=== PATIENT | male | born 1950 | race Caucasian/White ===

== ENCOUNTER 2016-05-04 08:30 | Emergency (ER) | payer OTHER, MEDICARE ==
[~2016-05-04] VITALS: Ht 177.8 cm; Wt 105.0 kg
[~2016-05-04 08:30] MED LIST: ASPI81 PO; ATOR80TA41 PO; CARV3.125 PO; LISI10 PO; PRAS10 PO
[2016-05-04 08:40] VITALS: BP 179/98; PULSE 73; RESP 20; TEMP 98.3; O2SAT 96
[2016-05-04] MEDS ORDERED: ATOR1TAB18 PO (08:45)
[2016-05-04] MEDS ORDERED: LISI10TA3 PO (08:45)
[2016-05-04] MEDS ORDERED: CARV3.12 PO (08:45)
[2016-05-04] MEDS ORDERED: PRAS10TA PO (08:45)
[2016-05-04] MEDS ORDERED: ASPI1TAB69 PO (08:46)
--- NOTE | 2016-05-04 08:58 | PD ---
HPI Chief Complaint: Complaint Time Seen by Provider: 08:47 Travel History International Travel<30 days: No Contact w/Intl Traveler<30days: No Traveled to known affect area: No History of Present Illness HPI 66-year-old male presents with one-day history of blood in his urine. He denies other associated symptoms including pain and fever. He states he is on Effient for cardiac stents. He denies other bleeding. He denies recurrent history of this. He denies specific modifying factors. PFSH Past Medical History Arthritis: Yes Cardiac Catheterization: Yes (stents x4) High Cholesterol: Yes Diminished Hearing: No Hypertension: Yes Immunizations Current: No Myocardial Infarction: Yes Tetanus Vaccination: > 5 Years Influenza Vaccination: No Past Surgical History Appendectomy: Yes Social History Alcohol Use: No Tobacco Use: No (quit 11/2015) Substance Use: No Allergies-Medications (Allergen,Severity, Reaction): Coded Allergies: No Known Allergies (Verified , 05/04/16) Reported Meds & Prescriptions Reported Meds & Active Scripts Active Ciprofloxacin (Ciprofloxacin HCl) 500 Mg Tab 500 Mg PO BID 5 Days Reported Aspirin 81 Mg Tabdr 81 Mg PO DAILY Carvedilol 3.125 Mg Tab 3.125 Mg PO BID Atorvastatin (Atorvastatin Calcium) 80 Mg Tab 80 Mg PO HS Lisinopril 10 Mg Tab 10 Mg PO DAILY Effient (Prasugrel) 10 Mg Tab 10 Mg PO DAILY Review of Systems Except as stated in HPI: all other systems reviewed are Neg Physical Exam Narrative GENERAL: Well-nourished, well-developed patient. Well-appearing SKIN: Warm and dry. HEAD: Normocephalic and atraumatic. EYES: No injection or drainage. ENT: No nasal drainage noted. NECK: Supple, trachea midline. CARDIOVASCULAR: Regular rate and rhythm RESPIRATORY: no increased effort. No accessory muscle use. GASTROINTESTINAL: Abdomen soft, non-tender, nondistended. NEUROLOGICAL: Awake and alert. Moves all extremities. Normal speech. Data Data Last Documented VS Vital Signs Date Time Temp Pulse Resp B/P Pulse Ox O2 Delivery O2 Flow Rate FiO2 05/04/16 11:03 62 20 156/80 98 Room Air 05/04/16 08:40 98.3 Orders Magnesium (Mg) (05/04/16 08:47) Phosphorus (Po4) (05/04/16 08:47) Complete Blood Count With Diff (05/04/16 08:47) Basic Metabolic Panel (Bmp) (05/04/16 08:47) Urinalysis - C+S If Indicated (05/04/16 08:47) Act Partial Throm Time (Ptt) (05/04/16 08:47) Prothrombin Time / Inr (Pt) (05/04/16 08:47) Iv Access Insert/Monitor (05/04/16 08:47) Ecg Monitoring (05/04/16 08:47) Oximetry (05/04/16 08:47) Ct Abd/Pel W/O Iv Contrast (05/04/16 ) Urine Culture (05/04/16 10:31) Labs Laboratory Tests Test 05/04/16 05/04/16 09:00 09:20 White Blood Count 5.1 TH/MM3 Red Blood Count 4.27 MIL/MM3 Hemoglobin 14.3 GM/DL Hematocrit 41.3 % Mean Corpuscular Volume 96.7 FL Mean Corpuscular Hemoglobin 33.4 PG Mean Corpuscular Hemoglobin 34.6 % Concent Red Cell Distribution Width 13.8 % Platelet Count 197 TH/MM3 Mean Platelet Volume 8.7 FL Neutrophils (%) (Auto) 51.0 % Lymphocytes (%) (Auto) 28.1 % Monocytes (%) (Auto) 10.5 % Eosinophils (%) (Auto) 9.4 % Basophils (%) (Auto) 1.0 % Neutrophils # (Auto) 2.6 TH/MM3 Lymphocytes # (Auto) 1.4 TH/MM3 Monocytes # (Auto) 0.5 TH/MM3 Eosinophils # (Auto) 0.5 TH/MM3 Basophils # (Auto) 0.1 TH/MM3 CBC Comment DIFF FINAL Differential Comment Urine Color BROWN Urine Turbidity CLEAR Urine pH 5.0 Urine Specific [place] 1.021 Urine Protein 30 mg/dL Urine Glucose (UA) NEG mg/dL Urine Ketones NEG mg/dL Urine Occult Blood LARGE Urine Nitrite NEG Urine Bilirubin NEG Urine Urobilinogen LESS THAN 2.0 MG/DL Urine Leukocyte Esterase TRACE Urine RBC /hpf Urine WBC 2 /hpf Urine Bacteria OCC /hpf Microscopic Urinalysis Comment CULT NOT INDICATED Prothrombin Time 10.6 SEC Prothromb Time International 1.0 RATIO Ratio Activated Partial 24.3 SEC Thromboplast Time Sodium Level 141 MEQ/L Potassium Level 4.4 MEQ/L Chloride Level 109 MEQ/L Carbon Dioxide Level 24.9 MEQ/L Anion Gap 7 MEQ/L Blood Urea Nitrogen 20 MG/DL Creatinine 0.90 MG/DL Estimat Glomerular Filtration 84 ML/MIN Rate Random Glucose 102 MG/DL Calcium Level 8.9 MG/DL Phosphorus Level 3.0 MG/DL Magnesium Level 2.0 MG/DL MDM Medical Decision Making Medical Screen Exam Complete: Yes Emergency Medical Condition: Yes Medical Record Reviewed: Yes (past history confirmed) Interpretation(s) CBC & BMP Diagram 05/04/16 09:00 05/04/16 09:20 Last 24 hours Impressions Abdomen/Pelvis CT 05/04/16 0000 Signed Impressions: Service Date/Time: Wednesday, May 04, 2016 10:01 - CONCLUSION: 1. Nonobstructing left renal calculus measures 2 mm. 2. Diverticulosis without diverticulitis. 3. Small fat containing umbilical hernia. Ward Gutierrez MD UA with blood and mild signs of infection, given Will treat Differential Diagnosis UTI, stone, mass Narrative Course Patient able to urinate on his own without retention. Will check blood work and urinalysis and CT abdomen pelvis Urine mild signs of infection given hematuria Will treat. CT shows renal stones without ureteral stone.Patient denies any new complaints and states that they are feeling better. Patient happy with care, all questions answered. Patient knows that follow up is incumbent on them and to return to the emergency room immediately if new or worsening symptoms develop. Patient given strict return precautions, vitals reviewed and are normal, agrees to further workup as an outpatient with urology. Diagnosis Primary Impression: Hematuria Referrals: Urologist Patient Instructions: General Instructions Additional Instructions: return as needed, follow with urologist this week Med/Other Pt SpecificInfo: Prescription(s) given Scripts Ciprofloxacin 500 Mg [id number] Mg PO BID 5 Days Ref 0 Prov:Malorie Iyer MD 05/04/16 Disposition: 01 DISCHARGE HOME Condition: Stable Malorie Iyer MD May 04, 2016 08:58
[2016-05-04 09:03] VITALS: RESP 20; O2SAT 96
[2016-05-04 09:06] LABS: AUTOMATED NEUTROPHIL # 2.6 TH/MM3 (1.8-7.7); BASOPHIL # 0.1 TH/MM3 (0-0.2); EOSINOPHIL # 0.5 TH/MM3 (0-0.4); EOSINOPHIL % 9.4 % (0.0-4.0); HEMATOCRIT 41.3 % (39.0-51.0); HEMO FLAGS DIFF FINAL; LYMPH % 28.1 % (9.0-44.0); LYMPHOCYTE # 1.4 TH/MM3 (1.0-4.8); MEAN CELL VOLUME 96.7 FL (80.0-100.0); MEAN CORPUSCULAR HEMOGLOBIN 33.4 PG (27.0-34.0); MEAN CORPUSCULAR HGB CONC 34.6 % (32.0-36.0); MONO % 10.5 % (0.0-8.0); PLATELET COUNT 197 TH/MM3 (150-450); RED BLOOD COUNT 4.27 MIL/MM3 (4.50-5.90); RED CELL DISTRIBUTION WIDTH 13.8 % (11.6-17.2); WHITE BLOOD COUNT 5.1 TH/MM3 (4.0-11.0)
[2016-05-04 09:24] LABS: BACTERIA, URINE OCC /hpf; BLOOD, URINE LARGE (NEG); COMMENT (UR) CULT NOT INDICATED; CULTURE IF INDICATED CULT NOT INDICATED; GLUCOSE,URINE NEG (NEG); KETONE, URINE NEG (NEG); NITRITE,URINE NEG (NEG)
[2016-05-04 09:27] LABS: URINE COLOR BROWN (YELLW/STRAW)
[2016-05-04 09:47] LABS: BICARBONATE 24.9 MEQ/L (21.0-32.0); POTASSIUM 4.4 MEQ/L (3.5-5.1)
[2016-05-04 09:48] LABS: APTT (PATIENT) 24.3 SEC (24.3-30.1); PROTHROMBIN TIME - PATIENT 10.6 SEC (9.8-11.6)
--- NOTE | 2016-05-04 10:16 | RADRPT ---
EXAM DATE/TIME: 05/04/2016 10:01 [facility] COMPARISON: No previous studies available for comparison. INDICATIONS : Gross hematuria today. ORAL CONTRAST: No oral contrast ingested. RADIATION DOSE: 18.97 CTDIvol (mGy) MEDICAL HISTORY : Cardiovascular disease. SURGICAL HISTORY : Appendectomy. ENCOUNTER: Initial ACUITY: 1 day PAIN SCALE: 0/10 LOCATION: Bilateral abdomen TECHNIQUE: Volumetric scanning of the abdomen and pelvis was performed. Using automated exposure control and ad justment of the mA and/or kV according to patient size, radiation dose was kept as low as reasonably achievable to obtain optimal diagnostic quality images. FINDINGS: LOWER LUNGS: The visualized lower lungs are clear. LIVER: Homogeneous density without lesion. There is no dilation of the biliary tree. No calcified gallston es. SPLEEN: Normal size without lesion. PANCREAS: Within normal limits. KIDNEYS: Normal in size and shape. There is no mass, stone, or hydronephrosis on the right. Punctate calculus left kidney measures 2 mm. No hydronephrosis. Bilateral renal cysts larger along the right kidney me asuring 7.3 cm. ADRENAL GLANDS: Within normal limits. VASCULAR: There is no aortic aneurysm. BOWEL/MESENTERY: Diverticulosis of the colon. There is no free intraperitoneal air or fluid. ABDOMINAL WALL: Fat-containing umbilical hernia. RETROPERITONEUM: There is no lymphadenopathy. BLADDER: No wall thickening or mass. REPRODUCTIVE: Within normal limits. INGUINAL: There is no lymphadenopathy or hernia. MUSCULOSKELETAL: Within normal limits for patient age. CONCLUSION: 1. Nonobstructing left renal calculus measures 2 mm. 2. Diverticulosis without diverticulitis. 3. Small fat containing umbilical hernia. Ward Gutierrez MD on May 04, 2016 at 10:12 Board Certified Radiologist. This report was verified electronically.
[2016-05-04] MEDS ORDERED: CIPR500T2 PO (10:30)
[2016-05-04 11:03] VITALS: BP 156/80; PULSE 62; RESP 20; O2SAT 98
== END 2016-05-04 11:34 | disposition home or self-care (01) ==
LOC: NEPC 08:30
DX: R31.9 Hematuria, unspecified (principal); K42.9 Umbilical hernia without obstruction or gangrene; N20.0 Calculus of kidney; K57.30 Diverticulosis of large intestine without perforation or abscess without bleeding; I10 Essential (primary) hypertension; I25.2 Old myocardial infarction; Z87.891 Personal history of nicotine dependence; Z79.02 Long term (current) use of antithrombotics/antiplatelets; Z79.82 Long term (current) use of aspirin; Z79.899 Other long term (current) drug therapy
CPT/HCPCS: 74176; 80048; 81001; 83735; 84100; 85025; 85610; 85730; 87086

== ENCOUNTER 2017-04-22 07:59 | Day surgery (SDC) | payer MEDICARE ==
[~2017-04-22] VITALS: Ht 165.1 cm; Wt 118.0 kg
[~2017-04-22 07:59] MED LIST changes: +ASPI1TAB69 PO; -ASPI81 PO; -ATOR80TA41 PO; +ATOR80TA45 PO; +CARV3.12 PO; -CARV3.125 PO; +CIPR500T2 PO; -LISI10 PO; +LISI10TA3 PO; -PRAS10 PO; +PRAS10TA PO
[2017-04-22] MEDS ORDERED: IOHEXOL 350 MG/ML 50 ML BTL (for Cath Lab) OTHER ONE (08:00)
[2017-04-22] MEDS ORDERED: SODIUM CHLOR 0.9% 1000 ML INJ 1,000 ML IV SCH (08:30)
[2017-04-22 09:00] VITALS: BP 126/77; PULSE 79; RESP 16; TEMP 98.7; O2SAT 98
[2017-04-22 09:26] LABS: AUTOMATED NEUTROPHIL # 2.7 TH/MM3 (1.8-7.7); EOSINOPHIL # 0.1 TH/MM3 (0-0.4); EOSINOPHIL % 1.8 % (0.0-4.0); HEMATOCRIT 38.6 % (39.0-51.0); HEMOGLOBIN 13.2 GM/DL (13.0-17.0); LYMPH % 23.2 % (9.0-44.0); LYMPHOCYTE # 1.1 TH/MM3 (1.0-4.8); MEAN CELL VOLUME 96.3 FL (80.0-100.0); MEAN CORPUSCULAR HGB CONC 34.3 % (32.0-36.0); MEAN PLATELET VOLUME 9.1 FL (7.0-11.0); MONO % 16.2 % (0.0-8.0); MONOCYTE # 0.7 TH/MM3 (0-0.9); NEUT % 57.8 % (16.0-70.0); PLATELET COUNT 162 TH/MM3 (150-450); RED BLOOD COUNT 4.01 MIL/MM3 (4.50-5.90); RED CELL DISTRIBUTION WIDTH 14.8 % (11.6-17.2); WHITE BLOOD COUNT 4.6 TH/MM3 (4.0-11.0)
[2017-04-22] MEDS ORDERED: HEPARIN-NS/PF FLUSH BAG 2,000 ML IV FLUSH ONE (09:35)
[2017-04-22] MEDS ORDERED: VERAPAMIL HCL 5 MG/2 ML VIAL ONE ×2 (09:36→11:02)
[2017-04-22] MEDS ORDERED: MIDAZOLAM HCL 2 MG/2 ML VIAL ONE ×2 (09:36→11:03)
[2017-04-22] MEDS ORDERED: HEPARIN SODIUM - IV 10,000 UNITS/10 ML VIAL ONE ×2 (09:36→11:02)
[2017-04-22] MEDS ORDERED: NITROGLYCERIN INJ 5 ML ONE ×2 (09:36→11:02)
[2017-04-22] MEDS ORDERED: ASPI81TA23 PO (09:39)
[2017-04-22] MEDS ORDERED: SACU1TAB7 PO (09:39)
[2017-04-22] MEDS ORDERED: POTA-163 PO (09:39)
[2017-04-22] MEDS ORDERED: MULT-65 PO (09:39)
[2017-04-22] MEDS ORDERED: PLAV75TA29 PO (09:39)
[2017-04-22] MEDS ORDERED: FURO40TA PO (09:39)
[2017-04-22 09:40] LABS: BICARBONATE 22.6 MEQ/L (21.0-32.0); CALCIUM 8.4 MG/DL (8.5-10.1); CREATININE 0.93 MG/DL (0.60-1.30); PROTHROMBIN TIME - PATIENT 10.1 SEC (9.8-11.6)
--- NOTE | 2017-04-22 10:24 | CATHPROC ---
[employer] HIS Report Study Information Study Number Admission Scheduled Start Study Start [id number] Apr 22 2017 7:59AM 04/22/2017 Apr 22 2017 9:04AM [place] [facility] Cardiac Catheterization Admit Source Facility Department Other [facility] - Local Government Legislator Physician and Clinical Staff Initial Bryn Little Electrician Constructor Supervisor Ming Bauer RN Electrician Constructor Supervisor Radha Worthy,HANSEL Recorder Tejal Walton,RT(R) ScrRoyal De Jesus,RT(R) Procedures Performed Procedure Location (Site) Vessel Name Coronary Angiograms LCA Left Coronary Coronary Angiograms RCA Right Coronary L Heart Cath Equipment Time Community Health Director Description Size Mfg Part Number Used/Scraped TRANSDUCER, TRUWAVE [id number] 09:26 VILLARREAL CRUMP * Used W/STOCKCOCK *[id number] *[id number] 09:26 THEVA PACK, CCL CUSTOM * Used *[id number] 09:26 THEVA SUPPORT, ARTERIAL ADULT [id number] *[id number] Used [id number] 09:53 MEDTRONIC JR 4.0 DXTERITY CATHETER FR 5 Used *[id number] BAND, RADIAL COMPRESSION TR [id number] 10:13 [employer] MEDICAL 29CM Used LARGE 29 *[id number] 09:26 [employer] WIRE, EXCHANGE 260CM 3MMJ 260CM Used *[id number] 09:26 NAMIC MANIFOLD, 4 PORT * Used *[id number] 09:26 [employer]ED OMNIPAQUE, 350 MG, 150ML 150ML [id number] Used [id number] 09:26 [employer] BLANKET,WARM AIR CCL * Used *[id number] SHEATH, FR6 TRANSRADIAL [id number] 09:26 [employer] MEDICAL FR 6 Used SLENDER 10CM *[id number] History: Current Medications Medication Dosage/Unit Route Frequency Last Date/Time Taken ASA Statins (any) CARVEDILOL PLAVIX History: Allergies Allergy Reaction No Known Allergies History: Risk Factors Family History of Hypertension Dyslipidemia Previous IL Previous Heart Failure Premature CAD Yes Yes No No No Prior Valve Prior PCI Prior PCIDate Prior CABG Surgery No Yes 11/21/2016 No Cerebrovascular Peripheral Artery Chronic Lung On Dialysis Diabetes Disease Disease Disease No No No No No History: Stress Tests Stress or Imaging Studies Performed Yes Standard Exercise Stress Test No Stress Echo No Stress Test SPECT Stress Test SPECT Result Stress Test SPECT Ischemia Risk/Extent Yes Positive High Stress Test CMR No Cardiac CTA Coronary Calcium Score No No History: Other Disease Selection Items CAD CHF History: Other Current Smoker Method Quit Packs a Day Years Used Pack Years No Cigarettes 1 Years Ago 1 50 50 Labs Hgb (g/dl) Hct (%) RBC (MIL/MM3) WBC (l/cumm) Platelets (thousands) 11.60-17.00 35.00-51.00 4.00-5.90 4.00-11.00 150.00-450.00 13.2 38.6 4 4.6 162 Glucose (mg/dl) BUN (mg/dl) Creatinine (mg/dl) BUN:Creatinine (1:x) 74.00-106.00 7.00-18.00 0.50-1.30 10.00-20.00 106 16 0.9 17.8 Na (meq/l) K (meq/l) 136.00-145.00 3.50-5.10 138 4.2 INR (PTT:PT) 0.90-1.10 1 CPK-MB (ng/ML) 0.50-3.60 Not Drawn Medication Medication Total Dose (Bolus/Oral) Medication Total Dosage/Unit 1% XYLOCAINE 20 mL FENTANYL 25 mcg RADIAL COCKTAIL 5 mL (Bolus) VERSED 0.5 mg Medications (Bolus/Oral) Medication Time Given Dosage/Unit Administered By Reason 1% XYLOCAINE 04/22/2017 9:56:05 AM 20 mL Radha Worthy 20 mL 1% XYLOCAINE given in lab by Radha Worthy RN in Right Radial via Subcutaneous. Ordered by Bryn Wise VERSED 04/22/2017 9:56:32 AM 0.5 mg Radha Worthy 0.5 mg VERSED given in lab by Radha Worthy RN in Left Antecubital via Peripheral IV. Ordered by Bryn Wise FENTANYL 04/22/2017 9:57:02 AM 25 mcg Radha Worthy 25 mcg FENTANYL given in lab by Radha Worthy RN in Left Antecubital via Peripheral IV. Ordered by Bryn De La Cruz RADIAL COCKTAIL 04/22/2017 9:59:46 AM 5 mL (Bolus) Bryn De La Cruz 5 mL (Bolus) RADIAL COCKTAIL given in lab by Radha Worthy RN in Right Radial via Radial. Using [So lution Name]. Ordered by Bryn De La Cruz Reason: Ntg 200mcg Verapamil 2.5mg Heparin 4700U. Medication (Drip) Medication Time Given Dosage/Unit Concentration/Unit Diluent (ml) Solution IV Solutions 04/22/2017 9:32:03 AM 50 mL (IV) NaCl .9 IV Solutions given in lab by Radha Worthy RN in Left Antecubital via Peripheral IV. Pump/Drip Flow using NaCl .9. Initial Case Assessment Cardiovascular HR NIBP Chest Pain 76 119/86 0 Skin color Skin Normal Warm Dry Circulatory - Right Pulses Dorsalis Pedis Femoral Radial 2 1 2 Scale (0,1,2,3,4,d) Scale (0,1,2,3,4,d) Neurological State Oriented to time-place- Alert Moves all extremities person Respiration - General Respiration Rate SpO2 (%) (B/min) 13 98 Chronological Log Time Study Chronological Log 9:30:54 Patient arrived via Bed. 9:30:54 Patient Name, D.O.B, / Armband Verified By R.N. 9:30:55 Consent signed by the physician and the patient and verified by the Local Government Legislator staff. 9:30:55 Pre-op and post- op instructions given; patient acknowledges understanding of instructions. 9:30:56 Verbal Stimulation=2 Physical Stimulation=2 Airway=2 Respiration=2 TOTAL=8. (0=absent, 1=li mited, 2=present) 9:31:05 Presedation assessment performed by Local Government Legislator RN. 9:31:48 Patient has been NPO for More than 6Hrs. 9:31:56 Skin Breakdown- none per pt 9:31:57 Patient Warmer Placed on the Table. 9:31:58 Roxy Prominences Protected 9:32:02 A # 20 IV was noted in the Antecubital (left). Grade = 0 9:32:03 IV Solutions given in lab by Radha Worthy RN in Left Antecubital via Peripheral IV. Pump /Drip Flow using NaCl .9. 9:32:04 History and physical on the chart or being dictated. Assessment: Initial Case, HR=76 BPM, KZOL=246/86 mmhg, Chest Pain=0, Color=Normal, Skin = Warm , Dry Right Pulses: Bryce Ped=2, Femoral=1, Radial=2 9:32:05 Neurological: State=Alert, Ox3, CARO Respiration: Resp=13 B/min, SpO2=98 % Vitals capture started with the following parameters, Patient=Adult, Interval=5 min, Initial P meqnoem=799 mmHg, 9:40:03 Deflation Rate=5 mmHg, Cuff placed on Right Ankle 9:40:38 HR=76 bpm, KIGX=330/86 mmhg, SpO2=96.0 %, Resp=19 B/min 9:40:49 Reference ECG taken 9:45:35 HR=74 bpm, YMSE=066/84 mmhg, SpO2=97.0 %, Resp=18 B/min 9:47:12 MD arrived. 9:47:13 Right Radial and right groin prepped with 2% chlorhexidine, and draped after a 3 min. waitin g time. 9:50:38 HR=73 bpm, JZGD=659/83 mmhg, SpO2=96 %, Resp=15 B/min 9:51:00 Pressure channel 1 zeroed. Time Out. Correct patient, correct procedure, correct physician, power injector not loaded with contrast with surgical 9:55:03 team present. Time Out Concurred by MD and individual staff in procedure. 9:55:39 HR=75 bpm, AOLY=957/81 mmhg, SpO2=95.0 %, Resp=20 B/min 9:56:01 Case Start 20 mL 1% XYLOCAINE given in lab by Radha Worthy RN in Right Radial via Subcutaneous. Ordered by Jono 9:56:05 Bryn Lopez 0.5 mg VERSED given in lab by Radha Worthy RN in Left Antecubital via Peripheral IV. Ordered by Bryn De La Cruz 9:56:32 G. 25 mcg FENTANYL given in lab by Radha Worthy, HANSEL in Left Antecubital via Peripheral IV. Order ed by Jono 9:57:02 Bryn Lopez 9:59:07 Access site was Right Radial Artery. A SHEATH, FR6 TRANSRADIAL SLENDER 10CM FR 6 was advanced into the Radial (right) using the Perc utaneous 9:59:23 technique. 5 mL (Bolus) RADIAL COCKTAIL given in lab by Radha Worthy, HANSEL in Right Radial via Radial. Usi ng [Solution Name]. 9:59:46 Ordered by Bryn De La Cruz Reason: Ntg 200mcg Verapamil 2.5mg Heparin 4700U. A JR 4.0 DXTERITY CATHETER FR 5 was advanced over a wire. OMNIPAQUE, 350 MG, 150ML 150ML was us ed for 10:00:32 injections. 10:00:40 HR=76 bpm, KPBD=635/75 mmhg, SpO2=96.0 %, Resp=13 B/min Recorded Pressure: LV, HR=77, Condition=Condition 1 10:02:25 (Left Ventricle) LV 117/6/10 Recorded Pressure: LV, Ao, HR=75, Condition=Condition 1 10:02:42 (Left Ventricle) LV 120/8/20, (Aorta) Ao 94/65/79 10:04:27 The RCA was injected and visualized at various angles. OMNIPAQUE, 350 MG, 150ML 150ML used . After removing the current catheter a JL 3.5 INFINITI CATHETER FR 5 was advanced over a WIRE, E XCHANGE 260CM 10:05:07 3MMJ 260CM. 10:05:39 HR=78 bpm, JXWK=443/77 mmhg, SpO2=93.0 %, Resp=20 B/min 10:06:15 The LCA was injected and visualized at various angles. OMNIPAQUE, 350 MG, 150ML 150ML used . 10:10:40 HR=78 bpm, MNNB=544/78 mmhg, SpO2=92.0 %, Resp=18 B/min 10:10:48 Catheter was removed Radial Compression Device Used. 8 mLs of air placed in BAND, RADIAL COMPRESSION TR LARGE 29 29C M. Affected 10:12:40 hand 97 % O2 saturation. 10:13:21 Case End 10:13:23 No case complications noted. 10:13:30 Cine recording checked. 10:13:34 Holding Area notified 10:13:40 Bedside Report will be given. 10:13:45 A Left Heart Cath was performed. 10:20:45 Patient moved to stretcher End Study - Contrast Media Used In Study Contrast Total Opened (mL) Total Used (mL) Total Wasted (mL) Omnipaque 40 40 0 End Study - Maximum Contrast Load Max Contrast Load (mL) 655.6 End Study - Radiation Exposure Fluoro Time (minutes) 2.7 End Study - Sheaths Sheaths Pulled By Sheath Hold Time (min) Bryn De La Cruz End Study - Patient Disposition Complications Transferred To Interventional Outcome No Telemetry Bed No attempt made
[2017-04-22] MEDS ORDERED: HEPARIN-NS/PF FLUSH BAG 1,000 ML IV FLUSH ONE (11:02)
[2017-04-22] MEDS ORDERED: MISC INFORMATION XX ONE (13:30)
--- NOTE | 2017-04-22 13:44 | EKG ---
Date Performed: 04/22/2017 Time Performed: 09:14:34 PTAGE: 67 years EKG: Sinus rhythm with PVC(s) Left bundle branch block Abnormal ECG PREVIOUS TRACING : 11/22/2015 13.20 DOCTOR: Mitchel Matamoros Interpretating Date/Time 04/22/2017 13:42:29
--- NOTE | 2017-04-23 23:27 | MA ---
cc: Bryn De La Cruz Vincent G DO 04/22/2017 PROCEDURE: Left heart catheterization, coronary angiogram, moderate sedation 17 minutes. PREPROCEDURE DIAGNOSIS: Worsening heart failure/cardiomyopathy. POSTPROCEDURE DIAGNOSIS: Coronary artery disease, previous stents patent. MEDICATIONS: Versed 0.5 mg, fentanyl 25 mcg, heparin 4700 units, nitro 200 mcg, verapamil 2.5 mg. CONTRAST USED: 40 mL. FLUOROSCOPY: 2.7 minutes. MODERATE SEDATION: 17 minutes. ESTIMATED BLOOD LOSS: 10 mL. PROCEDURAL SUMMARY: Valentin Zheng is a pleasant 67-year-old male who sees my partner, Dr. Rashid, in the office and was noted to have a decrease in his overall ejection fraction with worsening of his heart failure. He underwent stress testing which showed scar of the inferior and anterior lopez. Because of this as well as worsening of his cardiomyopathy, it was felt reasonable for him to undergo cardiac catheterization. Risks, benefits and alternatives were explained to him and he consented to such. He was brought to the lab and prepped in the usual sterile fashion. The right radial artery was accessed using a modified Seldinger technique and placement of a 5-6 [place] Slender sheath. This was easily aspirated and flushed. A JR4 was advanced over a J-wire to the ascending aorta and across the aortic valve for measurement of left ventricular pressure. This was pulled back across the aortic valve, showing no significant gradient of aortic stenosis. JR4 was used for selective angiography of the right coronary artery system. This was exchanged out for a JL3.5 which was used for selective angiography of the left coronary artery system. JL3.5 was removed over a J-wire. Radial band was placed over the arteriotomy site for hemostasis. 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 FINDINGS: LEFT MAIN: Normal-sized vessel with no significant disease. It bifurcates into the LAD and circumflex. LAD: Normal-sized vessel with 60% ostial stenosis, a 60% mid lesion, and a 90% mid lesion. It gives off 1 major diagonal with 50% disease. LEFT CIRCUMFLEX: Normal-sized vessel with stent noted in the left circumflex as well as the first obtuse marginal, which are both patent. Stent in the obtuse marginal has a 30% in-stent restenosis. It also gives off a second obtuse marginal which has a 50% lesion in the mid portion. RCA: Normal-sized vessel with a 60% lesion in the proximal portion. After that there are 2 stents, one in the proximal to mid which is patent and one in the distal which is patent. It gives off a PDA with no significant disease. It gives off 1 small PLV which is overall small and has 90% stenosis, which is no change from his previous cardiac catheterization. LVEDP 20. IMPRESSION: 1. Worsening heart failure/cardiomyopathy. 2. Coronary artery disease. RECOMMENDATIONS: 1. Mr. Zheng appears to have lesions both in his RCA and LAD which may have caused worsening of his heart failure. 2. He does have stress testing which shows scar of the inferior and anterior lopez. 3. I would recommend that he undergo MRI for viability and, if the inferior wall shows viability, I would stent the proximal portion of his RCA. If his anterior wall has viability, I would most likely need to IFR different lesions to determine which are physiologically stenosed. Obviously, the mid to distal one is physiologically stenotic, but I am unsure if the ostial and mid one are. Thank you for allowing me to see Valentin Zheng. If there are any questions, please do not hesitate to call. Bryn De La Cruz, DO GUTIERREZ//ja , 10:45 PM , 11:11 PM
== END 2017-04-22 13:52 | disposition home or self-care (01) ==
LOC: HDOC 07:59 → HDIC 07:59 → HDOC 13:52
PROVIDERS: ATTEND Nuclear Medicine Nuclear Cardiology
DX: I25.10 Atherosclerotic heart disease of native coronary artery without angina pectoris (principal); I11.9 Hypertensive heart disease without heart failure; I50.21 Acute systolic (congestive) heart failure; I25.5 Ischemic cardiomyopathy; I44.7 Left bundle-branch block, unspecified; R01.1 Cardiac murmur, unspecified; E78.5 Hyperlipidemia, unspecified; E78.00 Pure hypercholesterolemia, unspecified; Z95.5 Presence of coronary angioplasty implant and graft
CPT/HCPCS: 80048; 85025; 85610; 85730; 93005; 93458; 99152; C1769; C1893; J1644; J2250; J3010; Q9967

== ENCOUNTER 2017-07-07 06:52 | Day surgery (SDC) | payer MEDICARE ==
[2017-07-07] VITALS (12 sets, daily range): BP systolic 104–114; BP diastolic 72–76; PULSE 64–92; RESP 16–20; TEMP 97.7–98.2; O2SAT 93–97
[~2017-07-07] VITALS: Ht 177.8 cm; Wt 123.2 kg
[~2017-07-07 06:52] MED LIST changes: -ASPI1TAB69 PO; +ASPI81TA23 PO; -CIPR500T2 PO; +FURO40TA PO; -LISI10TA3 PO; +MULT-65 PO; +PLAV75TA29 PO; +POTA-163 PO; -PRAS10TA PO; +SACU1TAB7 PO
[2017-07-07] MEDS ORDERED: IOHEXOL 350 MG/ML 50 ML BTL (for Cath Lab) OTHER ONE (06:53)
[2017-07-07] MEDS ORDERED: IOHEXOL 350 MG/ML 100 ML BTL (for Cath Lab) OTHER ONE (06:53)
[2017-07-07] MEDS ORDERED: NS 1000P @30 MLS/HR (KVO) IV SCH (07:30)
[2017-07-07] MEDS ORDERED: CARV6.252 PO (07:40)
[2017-07-07 07:45] LABS: AUTOMATED NEUTROPHIL # 2.8 TH/MM3 (1.8-7.7); BASOPHIL # 0.1 TH/MM3 (0-0.2); BASOPHIL % 1.7 % (0.0-2.0); EOSINOPHIL # 0.6 TH/MM3 (0-0.4); EOSINOPHIL % 11.8 % (0.0-4.0); HEMATOCRIT 42.3 % (39.0-51.0); HEMOGLOBIN 14.4 GM/DL (13.0-17.0); LYMPH % 21.2 % (9.0-44.0); LYMPHOCYTE # 1.1 TH/MM3 (1.0-4.8); MEAN CELL VOLUME 95.9 FL (80.0-100.0); MEAN CORPUSCULAR HEMOGLOBIN 32.5 PG (27.0-34.0); MEAN CORPUSCULAR HGB CONC 33.9 % (32.0-36.0); MEAN PLATELET VOLUME 9.4 FL (7.0-11.0); MONO % 11.1 % (0.0-8.0); MONOCYTE # 0.6 TH/MM3 (0-0.9); NEUT % 54.2 % (16.0-70.0); PLATELET COUNT 188 TH/MM3 (150-450); RED BLOOD COUNT 4.41 MIL/MM3 (4.50-5.90); WHITE BLOOD COUNT 5.2 TH/MM3 (4.0-11.0)
[2017-07-07 07:57] LABS: PROTHROMBIN TIME - PATIENT 9.9 SEC (9.8-11.6)
[2017-07-07 08:02] LABS: CALCIUM 8.6 MG/DL (8.5-10.1); CREATININE 1.1 MG/DL (0.60-1.30)
[2017-07-07] MEDS ORDERED: HEPARIN-NS/PF INJ 1,000 ML ONE (08:27)
[2017-07-07] MEDS ORDERED: MIDAZOLAM HCL 2 MG/2 ML VIAL ONE (08:27)
[2017-07-07] MEDS ORDERED: HEPARIN SODIUM - IV 10,000 UNITS/10 ML VIAL ONE ×2 (08:28→09:08)
[2017-07-07] MEDS ORDERED: VERAPAMIL HCL 5 MG/2 ML VIAL ONE (08:34)
[2017-07-07] MEDS ORDERED: NITROGLYCERIN INJ 5 ML ONE (08:36)
[2017-07-07] MEDS ORDERED: MISC INFORMATION XX ONE (11:00)
[2017-07-07] MEDS ORDERED: oxyCODONE/ACETAMINOPHEN 10 MG/325 MG TAB PO PRN (11:00)
[2017-07-07] MEDS ORDERED: ACETAMINOPHEN 325 MG TAB PO PRN (11:00)
[2017-07-07] MEDS ORDERED: oxyCODONE/ACETAMINOPHEN 5 MG/325 MG TAB PO PRN (11:00)
[2017-07-07] MEDS ORDERED: MORPHINE SULFATE 4 MG/ML INJ IV PUSH PRN (11:00)
--- NOTE | 2017-07-07 11:06 | CATHPROC ---
[facility] HIS Report Study Information Study Number Admission Scheduled Start Study Start [id number] Jul 07 2017 6:52AM 07/07/2017 Jul 07 2017 8:24AM [place] [facility] Cardiac Catheterization Admit Source Facility Department Other [facility] - Ops Analyst Physician and Clinical Staff Initial Bryn Little Cellulose Insulation Helper Ming Bauer,HANSEL Other cathlab, cathlab Recorder Luann Rucker,LENS MARKER TECH2 Scrub Lenin Givens RCIS(BS) Procedures Performed Procedure Location (Site) Vessel Name Coronary Angiograms LCA Left Coronary Coronary Angiograms RCA Right Coronary Drug Eluting Inflatio LAD Dist Left Coronary Drug Eluting Inflatio LAD Mid Left Coronary PTCA DIAG2 Mid Left Coronary PTCA LAD Dist Left Coronary PTCA LAD Mid Left Coronary Wire insertion Fem Art (right) Femoral Art Equipment Time Underwriting Clerks Supervisor Description Size Mfg Part Number Used/Scraped [id number] 10:12 [employer]ATCH [employer] WIRE, ASAHI PROWATER 180CM 180CM Used *[id number] WIRE, BALANCE MIDDLEWEIGHT [id number] 09:44 [employer]ATCH [employer] 190CM Used 190CM *[id number] TRANSDUCER, TRUWAVE [id number] 08:54 VILLARREAL CRUMP * Used W/Issue *[id number] *[id number] 10:25 DAIG/ST. MARILUZ MEDICAL ANGIOSEAL, FR6 VIP FR 6 Used *[id number] 08:54 [employer] INDUSTRIES PACK, CCL CUSTOM * Used *[id number] 08:54 Angelfish SUPPORT, ARTERIAL ADULT 85749 *[id number] Used [id number] 09:47 MEDTRONIC BALLOON, 2.0 X 12MM EUPHORA 12MM Used *[id number] BALLOON, 3.0 X 15MM NC [id number] 10:05 MEDTRONIC 15MM Used EUPHORA *[id number] 09:56 MEDTRONIC STENT, 2.0 15MM JASON 2.0 X 15MM Used *[id number] 10:00 MEDTRONIC STENT, 3.0 22MM JASON 3.0 22MM Used *[id number] 09:22 MEDTRONIC/AVE EBU 3.5 Z2 GUIDE CATHETER FR 6 Used *[id number] [id number] 09:50 [employer] MEDICAL 30 FARIDA INDEFLATOR Used *[id number] 09:24 MERIT MEDICAL WIRE, 3MMJ .035 180CM 180CM Used *[id number] [id number] 08:54 MERIT MEDICAL WIRE, EXCHANGE 260CM 3MMJ 260CM Used *[id number] [id number] 08:54 NAMIC MANIFOLD, 4 PORT * Used *[id number] 08:54 NYCOMED OMNIPAQUE, 350 MG, 150ML 150ML [id number] Used [id number] 08:54 HOBBS MEDICAL BLANKET,WARM AIR CCL * Used *[id number] [id number] 08:54 TERUMO MEDICAL SHEATH, FR6 TERUMO (10CM) FR 6 Used *[id number] SHEATH, FR6 TRANSRADIAL [id number] 08:54 TERUMO MEDICAL FR 6 Used SLENDER 10CM *[id number] 09:11 VOLCANO PRIME WIRE, VERRATA 185CM 185CM Used *[id number] Equipment Model, Serial, Lot Number and Expiration Data Description Model Number Serial Number Lot Number Expiration Date ANGIOSEAL, FR6 VIP [id number] 02-15-2018 BALLOON, 2.0 X 12MM EUPHORA [id number] 01-07-2019 PRIME WIRE, VERRATA 185CM 1945 [id number] 05-16-2020 STENT, 2.0 15MM JASON [id number] 02-27-2019 STENT, 3.0 22MM JASON [id number] 03-15-2019 History: Current Medications Medication Dosage/Unit Route Frequency Last Date/Time Taken ASA CARVEDILOL Statins (any) PLAVIX History: Allergies Allergy Reaction No Known Allergies History: Risk Factors Family History of Hypertension Dyslipidemia Previous PA Previous Heart Failure Premature CAD Yes Yes No No No Prior Valve Prior PCI Prior PCIDate Prior CABG Surgery No Yes 11/22/2015 No Cerebrovascular Peripheral Artery Chronic Lung On Dialysis Diabetes Disease Disease Disease No No No No No History: CV Disease Selection Items Cardiomyopathy History: Stress Tests Stress or Imaging Studies Performed Yes Standard Exercise Stress Test No Stress Echo No Stress Test SPECT No Stress Test CMR Stress Test CMR Result Stress Test CMR Ischemia Risk/Extent Yes Positive High Cardiac CTA Coronary Calcium Score No No History: PA/CV Data Previous Cath Date 11/21/2017 History: Other Current Smoker No Labs Hgb (g/dl) Hct (%) RBC (MIL/MM3) WBC (l/cumm) Platelets (thousands) 11.60-17.00 35.00-51.00 4.00-5.90 4.00-11.00 150.00-450.00 14.4 42.3 4.4 5.2 188 Glucose (mg/dl) BUN (mg/dl) Creatinine (mg/dl) BUN:Creatinine (1:x) 74.00-106.00 7.00-18.00 0.50-1.30 10.00-20.00 119 22 1.1 20 Na (meq/l) K (meq/l) Cl (meq/l) CO2 (mmol/L) Ca (mg/dl) 136.00-145.00 3.50-5.10 98.00-107.00 21.00-32.00 8.50-10.10 142 4.4 108 24 8.6 PT (sec) PTT (sec) INR (PTT:PT) 9.80-11.60 24.30-30.10 0.90-1.10 9.9 22.8 1 Medication Medication Total Dose (Bolus/Oral) Medication Total Dosage/Unit 1% XYLOCAINE 30 mL FENTANYL 25 mcg HEPARIN 51520 units NTG (IC) 350 mcg VERSED 0.5 mg Medications (Bolus/Oral) Medication Time Given Dosage/Unit Administered By Reason VERSED 07/07/2017 8:48:23 AM 0.5 mg Ming Bauer 0.5 mg VERSED given in lab by Ming Bauer, RN in Left Antecubital via Peripheral IV. Ordered by Bryn Sen FENTANYL 07/07/2017 8:48:24 AM 25 mcg Bryn De La Cruz 25 mcg FENTANYL given in lab by Bryn De La Cruz in Left Antecubital via Peripheral IV. Ordered by Bryn De La Cruz 1% XYLOCAINE 07/07/2017 8:48:54 AM 10 mL Bryn De La Cruz 10 mL 1% XYLOCAINE given in lab by Bryn De La Cruz in Right Radial via Subcutaneous. 1% XYLOCAINE 07/07/2017 8:58:48 AM 20 mL Bryn De La Cruz 20 mL 1% XYLOCAINE given in lab by Bryn De La Cruz in Right Groin via Subcutaneous. Ordered by Bryn Wise HEPARIN 07/07/2017 9:09:27 AM 9000 units Ming Bauer 9000 units HEPARIN given in lab by Ming Bauer RN in Left Antecubital via Peripheral IV. Ordered by Bryn De La Cruz HEPARIN 07/07/2017 9:36:20 AM 3000 units Ming Bauer 3000 units HEPARIN given in lab by Ming Bauer RN in Left Antecubital via Peripheral IV. Ordered by Bryn De La Cruz NTG (IC) 07/07/2017 9:55:12 AM 100 mcg Ming Bauer 100 mcg NTG (IC) given in lab by Ming Bauer RN in Right Groin via Intra-coronary. Ordered by Bryn Sepulveda NTG (IC) 07/07/2017 9:59:33 AM 100 mcg Ming Bauer 100 mcg NTG (IC) given in lab by Ming Bauer RN in Right Groin via Intra-coronary. Ordered by Bryn Sepulveda NTG (IC) 07/07/2017 10:08:25 AM 150 mcg Ming Bauer 150 mcg NTG (IC) given in lab by Ming Bauer RN in Right Groin via Intra-coronary. Ordered by Bryn Sepulveda HEPARIN 07/07/2017 10:14:55 AM 1000 units Ming Bauer 1000 units HEPARIN given in lab by Ming Bauer RN in Left Antecubital via Peripheral IV. Ordered by Bryn De La Cruz Medication (Drip) Medication Time Given Dosage/Unit Concentration/Unit Diluent (ml) Solution IV Bolus 07/07/2017 9:32:47 AM 500 mL (Bolus) NaCl .9 500 mL (Bolus) IV Bolus given in lab by Ming Bauer RN in Left Antecubital via Peripheral IV. Using NaCl .9. Ordered by Bryn De La Cruz IV Solutions 07/07/2017 8:24:35 AM 0 mL (IV) 500 NaCl .9 IV Solutions given in lab by Ming Bauer RN in Left Antecubital via Peripheral IV. Pump/Drip Flow = 20 ml/hr using NaCl .9. Ordered by Bryn De La Cruz Initial Case Assessment Cardiovascular HR NIBP 69 112/74 Edema Present Skin color Skin None Normal Warm Dry Circulatory - Right Pulses Dorsalis Pedis Femoral Radial 1 1 2 Scale (0,1,2,3,4,d) Circulatory - Left Pulses Dorsalis Pedis Femoral Radial 1 1 Scale (0,1,2,3,4,d) Neurological State Oriented to time-place- Alert Moves all extremities person Respiration - General Respiration Rate SpO2 (%) (B/min) 15 96 Final Case Assessment Cardiovascular HR NIBP 55 98/76 Edema Present Skin color Skin None Normal Warm Dry Circulatory - Right Pulses Dorsalis Pedis Femoral Radial 1 1 2 Scale (0,1,2,3,4,d) Circulatory - Left Pulses Dorsalis Pedis Femoral Radial 1 1 Scale (0,1,2,3,4,d) Neurological State Oriented to time-place- Alert Moves all extremities person Respiration - General Respiration Rate SpO2 (%) (B/min) 15 96 Chronological Log Time Study Chronological Log 8:24:22 Patient arrived via Bed. 8:24:23 Patient Name, D.O.B, / Armband Verified By R.N. 8:24:23 Consent signed by the physician and the patient and verified by the Ops Analyst staff. 8:24:24 Pre-op and post- op instructions given; patient acknowledges understanding of instructions. Verbal Stimulation=~VERBAL~ Physical Stimulation=~PHYSICAL~ Airway=~AIRWAY~ Respiration=~RESPIR ATION~ 8:24:24 TOTAL=~TOTAL~. (0=absent, 1=limited, 2=present) 8:24:25 Presedation assessment performed by Ops Analyst RN. 8:24:25 Allens test performed on the right radial and ulnar artery. 8:24:26 Immediate Presedation assesment performed by physician. 8:24:30 Patient has been NPO for More than 6Hrs. 8:24:30 Skin Breakdown- 8:24:31 Patient Warmer Placed on the Table. 8:24:32 Roxy Prominences Protected 8:24:34 A # 20 IV was noted in the Antecubital (left). Grade = 0 IV Solutions given in lab by Ming Bauer, RN in Left Antecubital via Peripheral IV. Pump/Drip Flow = 20 ml/hr using 8:24:35 NaCl .9. Ordered by Bryn De La Cruz 8:24:35 History and physical on the chart or being dictated. 8:43:11 Pressure channel 1 zeroed. Vitals capture started with the following parameters, Patient=Adult, Interval=5 min, Initial Pre rqbre=898 mmHg, 8:43:26 Deflation Rate=5 mmHg, Cuff placed on Right Arm 8:44:13 Reference ECG taken Vitals capture started with the following parameters, Patient=Adult, Interval=5 min, Initial Pre kmciv=209 mmHg, 8:44:19 Deflation Rate=5 mmHg, Cuff placed on Right Arm Vitals capture started with the following parameters, Patient=Adult, Interval=5 min, Initial Pre kkzqj=406 mmHg, 8:45:40 Deflation Rate=5 mmHg, Cuff placed on Right Arm 8:46:20 HR=69 bpm, XGBJ=034/74 mmhg, SpO2=96.0 %, Resp=15 B/min, Pain=0, Monique=10, Cedeno=2 Assessment: Initial Case, HR=69 BPM, CIPU=161/74 mmhg, Edema=None, Color=Normal, Skin = Warm, Dr y Right Pulses: Bryce Ped=1, Femoral=1, Radial=2 8:47:16 Left Pulses: Bryce Ped=1, Femoral=1 Neurological: State=Alert, Ox3, CARO Respiration: Resp=15 B/min, SpO2=96 % Time Out. Correct patient, correct procedure, correct physician, labs, allergies, and equipment verified with micro lab analyst 8:47:20 team present. Fire risk assesment completed (see hard stop sheet for coding). Time Out Concu rred by MD and individual staff in procedure. 8:47:45 Case Start 8:48:23 0.5 mg VERSED given in lab by Ming Bauer RN in Left Antecubital via Peripheral IV. Ordere d by Bryn De La Cruz. 25 mcg FENTANYL given in lab by Bryn De La Cruz in Left Antecubital via Peripheral IV. Order ed by Jono, 8:48:24 Bryn Hoover. 8:48:54 10 mL 1% XYLOCAINE given in lab by Bryn De La Cruz in Right Radial via Subcutaneous. 8:50:10 A sheath was advanced into the Fem Art (right) using the ~TECHNIQUE~ technique. 8:50:54 Access site was Radial Artery. 8:51:12 HR=66 bpm, KPUN=516/74 mmhg, SpO2=96.0 %, Resp=15 B/min, Pain=0, Monique=10, Cedeno=2 8:56:12 HR=67 bpm, KZLR=582/74 mmhg, SpO2=95.0 %, Resp=15 B/min, Pain=0, Monique=10, Cedeno=2 20 mL 1% XYLOCAINE given in lab by Bryn De La Cruz in Right Groin via Subcutaneous. Ordered by Jono, 8:58:48 Bryn Hoover. 9:01:13 HR=70 bpm, NIBP=95/68 mmhg, SpO2=96 %, Pain=0, Monique=10, Cedeno=2 9:04:56 Access site was Right Femoral Artery. 9:05:27 A SHEATH, FR6 TERUMO (10CM) FR 6 was advanced into the Fem Art (right) using the Modified Se cuba technique. 9:06:12 HR=64 bpm, NIBP=98/73 mmhg, SpO2=96 %, Resp=15 B/min, Pain=0, Monique=10, Cedeno=2 9:07:10 An injection in the Fem Art (right) was made through the SHEATH, FR6 TERUMO (10CM) FR 6. A JR 4.0 GUIDE CATHETER FR 6 was advanced over a wire. OMNIPAQUE, 350 MG, 150ML 150ML was used f or 9:08:17 injections. 9000 units HEPARIN given in lab by Ming Bauer, RN in Left Antecubital via Peripheral IV. Order ed by Bryn De La Cruz 9:09:27 G. 9:10:13 Pressure channel 1 zeroed. Recorded Pressure: Ao, HR=69, Condition=Condition 1 9:10:54 (Aorta) Ao 93/61/76 9:11:13 HR=63 bpm, NIBP=94/70 mmhg, SpO2=96.0 %, Resp=15 B/min, Pain=0, Monique=10, Cedeno=2 9:11:52 The RCA was injected and visualized at various angles. OMNIPAQUE, 350 MG, 150ML 150ML used. 9:14:27 Flow Wire was was placed in the RCA Prox. The FFR measures ~FFR~ percent. The IFR measures 0 .97 Percent. 9:16:12 HR=65 bpm, YUQB=985/69 mmhg, SpO2=95 %, Resp=15 B/min, Pain=0, Monique=10, Cedeno=2 9:22:00 The PRIME WIRE, VERRATA 185CM 185CM was removed. 9:22:02 HR=65 bpm, OSQA=469/73 mmhg, SpO2=96 %, Resp=15 B/min, Pain=0, Monique=10, Cedeno=2 After removing the current catheter a EBU 3.5 Z2 GUIDE CATHETER FR 6 was advanced over a WIRE, E XCHANGE 9:24:13 260CM 3MMJ 260CM. 9:26:18 HR=63 bpm, NIBP=95/61 mmhg, SpO2=98.0 %, Resp=15 B/min, Pain=0, Monique=10, Cedeno=2 9:27:18 The LCA was injected and visualized at various angles. OMNIPAQUE, 350 MG, 150ML 150ML used. 9:31:25 Activated Clotting Time Drawn 9:31:50 HR=63 bpm, NIBP=97/77 mmhg, SpO2=96 %, Resp=15 B/min, Pain=0, Monique=10, Cedeno=2 500 mL (Bolus) IV Bolus given in lab by Ming Bauer RN in Left Antecubital via Peripheral IV. Using NaCl .9. Ordered 9:32:47 by Bryn De La Cruz 9:33:38 Flow Wire was was placed in the LAD Dist. The FFR measures ~FFR~ percent. The IFR measures 0 .81 Percent. 9:35:23 ACT (Normal Range 90-180) = 208 9:36:12 HR=62 bpm, QXQB=995/73 mmhg, SpO2=94.0 %, Resp=15 B/min, Pain=0, Monique=10, Cedeno=2 3000 units HEPARIN given in lab by Ming Bauer RN in Left Antecubital via Peripheral IV. Orde red by Bryn De La Cruz 9:36:20 G. 9:41:13 HR=56 bpm, NIBP=99/68 mmhg, SpO2=96 %, Resp=15 B/min, Pain=0, Monique=10, Cedeno=2 9:41:54 Flow Wire was was placed in the LAD Mid. The FFR measures ~FFR~ percent. The IFR measures 0. 92 Percent. 9:45:35 A WIRE, BALANCE MIDDLEWEIGHT 190CM 190CM was inserted via Fem Art (right). 9:46:14 HR=56 bpm, KWFG=058/78 mmhg, SpO2=94 %, Resp=15 B/min, Pain=0, Monique=10, Cedeno=2 9:46:30 Activated Clotting Time Drawn 9:48:39 The PRIME WIRE, VERRATA 185CM 185CM was removed. 9:49:23 ACT (Normal Range 90-180) = 273 A BALLOON, 2.0 X 12MM EUPHORA 12MM was inserted over WIRE, BALANCE MIDDLEWEIGHT 190CM 190CM via the 9:49:39 LAD Dist. A BALLOON, 2.0 X 12MM EUPHORA 12MM over a WIRE, BALANCE MIDDLEWEIGHT 190CM 190CM in the LAD Dis t was 9:50:55 inflated using a 30 FARIDA INDEFLATOR at 8 farida for 30 sec. 9:51:13 HR=60 bpm, OZUS=663/66 mmhg, SpO2=96.0 %, Resp=15 B/min, Pain=0, Monique=10, Cedeno=2 9:55:12 100 mcg NTG (IC) given in lab by Ming Bauer RN in Right Groin via Intra-coronary. Ordered by Bryn De La Cruz 9:56:16 HR=65 bpm, QYIP=814/68 mmhg, SpO2=94 %, Resp=15 B/min, Pain=0, Monique=10, Cedeno=2 A STENT, 2.0 15MM JASON 2.0 X 15MM was advanced through a EBU 3.5 Z2 GUIDE CATHETER FR 6 over a WIRE, 9:57:19 BALANCE MIDDLEWEIGHT 190CM 190CM. A STENT, 2.0 15MM JASON 2.0 X 15MM was deployed using a 30 FARIDA INDEFLATOR at 12 atmospheres for 30 seconds 9:57:52 in the LAD Dist. 9:59:28 Delivery device removed 9:59:33 100 mcg NTG (IC) given in lab by Ming Bauer RN in Right Groin via Intra-coronary. Ordered by Bryn De La Cruz 10:01:19 HR=68 bpm, NIBP=92/63 mmhg, SpO2=96 %, Resp=15 B/min, Pain=0, Monique=10, Cedeno=2 A STENT, 3.0 22MM JASON 3.0 22MM was advanced through a EBU 3.5 Z2 GUIDE CATHETER FR 6 over a WI RE, 10:03:11 BALANCE MIDDLEWEIGHT 190CM 190CM. A STENT, 3.0 22MM JASON 3.0 22MM was deployed using a 30 FARIDA INDEFLATOR at 12 atmospheres for 30 seconds in 10:03:36 the LAD Mid. 10:04:35 Delivery device removed A BALLOON, 3.0 X 15MM NC EUPHORA 15MM was inserted over WIRE, BALANCE MIDDLEWEIGHT 190CM 190CM via 10:05:19 the LAD Mid. 10:06:14 HR=66 bpm, UDSW=416/70 mmhg, SpO2=96.0 %, Resp=15 B/min, Pain=0, Monique=10, Cedeno=2 A BALLOON, 3.0 X 15MM NC EUPHORA 15MM over a WIRE, BALANCE MIDDLEWEIGHT 190CM 190CM in the LAD Mid 10:06:32 was inflated using a 30 FARIDA INDEFLATOR at 14 farida for 12 sec. A BALLOON, 3.0 X 15MM NC EUPHORA 15MM over a WIRE, BALANCE MIDDLEWEIGHT 190CM 190CM in the LAD Mid 10:07:13 was inflated using a 30 FARIDA INDEFLATOR at 14 farida for 14 sec. 10:07:37 Balloon Removed. 10:08:25 150 mcg NTG (IC) given in lab by Ming Bauer RN in Right Groin via Intra-coronary. Ordere d by Bryn De La Cruz G. 10:08:50 A-LINE CALLED FOR 10:11:19 HR=65 bpm, NIBP=90/62 mmhg, SpO2=94.0 %, Resp=15 B/min, Pain=0, Monique=10, Cedeno=2 10:12:20 A WIRE, ASAHI PROWATER 180CM 180CM was inserted via Fem Art (right). 1000 units HEPARIN given in lab by Ming Bauer RN in Left Antecubital via Peripheral IV. Orde red by Bryn De La Cruz 10:14:55 G. 10:16:14 HR=68 bpm, NIBP=96/64 mmhg, SpO2=97.0 %, Pain=0, Monique=10, Cedeno=2 A BALLOON, 2.0 X 12MM EUPHORA 12MM was inserted over WIRE, ASAHI PROWATER 180CM 180CM via the D IAG2 10:16:55 Mid. A BALLOON, 2.0 X 12MM EUPHORA 12MM over a WIRE, ASAHI PROWATER 180CM 180CM in the DIAG2 Mid was 10:17:36 inflated using a 30 FARIDA INDEFLATOR at 8 farida for 30 sec. 10:19:29 Balloon Removed. 10:19:47 Wire removed. BMW 10:19:54 Wire removed. PROWATER 10:20:37 A WIRE, 3MMJ .035 180CM 180CM was inserted via Fem Art (right). 10:20:46 Catheter was removed 10:21:50 HR=70 bpm, NYYD=746/83 mmhg, SpO2=96.0 %, Resp=15 B/min, Pain=0, Monique=10, Cedeno=2 10:25:22 Catheter(s) removed without difficulty 10:25:25 ANGIOSEAL, FR6 VIP FR 6 placement in the Fem Art (right) 10:26:29 HR=54 bpm, NIBP=95/57 mmhg, SpO2=98.0 %, Resp=15 B/min, Pain=0, Monique=10, Cedeno=2 10:27:41 Case End 10:31:20 HR=52 bpm, FJDF=180/58 mmhg, SpO2=96.0 %, Resp=15 B/min, Pain=0, Monique=10, Cedeno=2 10:33:01 Sterile dressing applied to site 10:33:02 No case complications noted. 10:33:03 Cine recording checked. 10:33:05 Bedside Report will be given. 10:33:07 Implantable Device card placed in patient's chart. PCI QA completed: Pre-Huber - ~PRE HUBER~, Post Huber - ~POST HUBER~, Type - ~TYPE~, Length - 20 mm , Morphology - 10:33:44 ~MORPHOLOGY~, Indications - ~INDICATIONS~, Pre-Stenosis - 90% and Post Stenosis - 0%. 10:33:45 PCI QA obtained from Financial Services Sales Representative PCI QA completed: Pre-Huber - ~PRE HUBER~, Post Huber - ~POST HUBER~, Type - ~TYPE~, Length - 12 mm , Morphology - 10:33:58 ~MORPHOLOGY~, Indications - ~INDICATIONS~, Pre-Stenosis - 60% and Post Stenosis - 0%. 10:36:17 HR=55 bpm, NIBP=98/76 mmhg, SpO2=96.0 %, Resp=15 B/min, Pain=0, Monique=10, Cedeno=2 Assessment: Final Case, HR=55 BPM, NIBP=98/76 mmhg, Edema=None, Color=Normal, Skin = Warm, Dry Right Pulses: Bryce Ped=1, Femoral=1, Radial=2 10:37:50 Left Pulses: Bryce Ped=1, Femoral=1 Neurological: State=Alert, Ox3, CARO Respiration: Resp=15 B/min, SpO2=96 % End Study - Contrast Media Used In Study Contrast Total Opened (mL) Total Used (mL) Total Wasted (mL) Omnipaque 200 200 0 End Study - Maximum Contrast Load Max Contrast Load (mL) 556.0 End Study - Radiation Exposure Fluoro Time (minutes) 15.3 End Study - Patient Disposition Complications Transferred To Telemetry Bed
--- NOTE | 2017-07-07 16:43 | EKG ---
Date Performed: 07/07/2017 Time Performed: 07:42:24 PTAGE: 67 years EKG: Sinus rhythm with aberrantly conducted supraventricular complexes. Left bundle branch block Abnormal ECG PREVIOUS TRACING : 04/22/2017 09.14 Since the previous tracing, no significant change noted DOCTOR: Venecia Duams Interpretating Date/Time 07/07/2017 16:41:22
[2017-07-07] MEDS ORDERED: ATORVASTATIN 80 MG TAB PO SCH (21:00)
--- NOTE | 2017-07-07 21:19 | MA ---
cc: Bryn De La Cruz DO DATE: 07/07/2017 DATE OF PROCEDURE: 07/07/2017. PROCEDURE: Coronary angiogram, ultrasound-guided access, complex case, moderate sedation 100 minutes, IFR RCA, IFR LAD, Grafton drug-eluting stent (3 x 22) to the mid LAD and Grafton drug-eluting stent (2 x 15) to the mid distal LAD, balloon angioplasty diagonal, Angio-Seal femoral arteriotomy site. PREPROCEDURE DIAGNOSIS: Coronary artery disease, congestive heart failure with infarction of the inferior and anterior wall on stress test with MRI viability. POSTPROCEDURE DIAGNOSIS: Coronary artery disease, moderate disease of the right coronary artery, severe disease of the left anterior descending, status post Sandeep drug-eluting stent (3 x 22) to the mid left anterior descending and Sandeep drug-eluting stent (2 x 15) to the mid to distal left anterior descending. MEDICATIONS: Versed 0.5 mg, fentanyl 25 mcg, heparin 13,000 units. CONTRAST USED: 200 mL FLUOROSCOPY: 15.3 minutes. MODERATE SEDATION: 100 minutes. FRAILTY SCORE: Three. ESTIMATED BLOOD LOSS: 20 mL PROCEDURAL SUMMARY: Valentin Zheng is a pleasant 67-year-old male who sees my partner, Dr. Paige, in the office and originally underwent cardiac catheterization due to congestive heart failure. During this, he was found to have disease of the RCA and LAD and previously had undergone stress testing showing infarction of these areas. He underwent MRI viability, which showed at least moderate disease if not severe of the RCA and LAD and previously had undergone stress testing which showed infarction of these areas. Because of this, he was recommended an MRI, which showed viability of both areas and so because of his congestive heart failure, he was recommended consideration of PCI of these areas. Risks, benefits and alternatives were explained to him and he consented to such. He was brought to the lab and prepped in the usual sterile fashion. The right radial artery was attempted to be accessed, but was unable to and so this was aborted. The right femoral artery was accessed using modified Seldinger technique with ultrasound guidance and placement of a 6-Citizen Of [place] sheath. This was easily aspirated and flushed. A JR4 guide was advanced over a J-wire and engaged into the RCA. The patient was given heparin as an anticoagulant. A Verrata wire was advanced into the RCA and IFR was measured at 0.97 showing nonsignificant stenosis. The guide was then exchanged for an EBU 3.5 guide, which was engaged in the left main. The Verrata wire was then advanced down the LAD to the mid portion. The mid lesion IFR measured 0.81, showing significant stenosis. The wire was pulled back to evaluate only the ostial portion of the LAD and this IFR was 0.93, showing nonsignificant stenosis. A BMW wire was advanced through the multiple lesions in the LAD into the distal portion. A compliant balloon (2 x 12) was taken to the mid distal lesion and inflated. This was then stented with an Sandeep drug-eluting stent (2 x 15). It was felt that the size of this was ideal and no post-dilatation was necessary. The mid lesion was stented with an Grafton drug-eluting stent (3 x 22). This is postdilated with a noncompliant balloon (3 x 15). Evaluation of the diagonal that comes off the midportion of the LAD shows some snowplowing into the ostial portion with MILA 3 flow, so I decided that this should at least be attempted to be a balloon. A Prowater wire was advanced through the stent into the diagonal and a compliant balloon (2 x 12) was taken up at low pressures. Final angiogram shows a well opposed stent with no perforations or dissections and MILA 3 flow throughout the LAD and diagonals. Guide and wires were removed. Angio-Seal was used for closure of the femoral arteriotomy. The patient left the floating labor gang supervisor cardiovascularly stable. FINDINGS: RIGHT CORONARY ARTERY: Normal-sized vessel with 50-60% lesion in the proximal portion. IFR 0.97, showing nonsignificant stenosis. LEFT MAIN: Normal-sized vessel with 10% disease distally. It bifurcates into an LAD and circumflex. LEFT ANTERIOR DESCENDING: Normal-sized vessel with 50-60% lesion in the proximal portion (IFR 0.93 showing nonsignificant stenosis). The mid portion has diffuse 70% disease. The mid to distal portion has a 90% lesion. PERCUTANEOUS CORONARY INTERVENTION DATA: Lesion 1 mid LAD, length 20, pre-MILA 3, post-MILA 3, post-stenosis 0. Lesion 2 distal LAD, lesion length 12, pre-MILA 3, post-MILA 3, post-stenosis 0. Lesion 3 ostial diagonal, lesion length 3, pre-MILA e, post-MILA 3, post-stenosis 60. IMPRESSION: 1. Congestive heart failure. 2. Coronary artery disease. 3. MRI showing viability of the left anterior descending, status post Grafton drug-eluting stent (3 x 22) to the mid left anterior descending, Grafton drug-eluting stent (2 x 15) to the mid to distal left anterior descending. RECOMMENDATIONS: 1. Mr. Zheng underwent PCI as above and will be recommended continual therapy on his aspirin, Plavix, statin and beta herman therapy. 2. He is on Entresto, which would cover him from ARB therapy, but this will be held in the morning until evaluation of his kidney function. This will most likely be restarted before discharge. 3. He will be watched overnight and if stable in the morning be discharged home. Thank you for allowing me to see Valentin Zheng. If there are any questions, please do not hesitate to call. DO MATT Sauceda/LORIE , 07:31 PM , 09:18 PM
[2017-07-07] MEDS: CARVEDILOL 6.25 MG TAB PO SCH (21:58)
[2017-07-08] VITALS (12 sets, daily range): BP systolic 105–127; BP diastolic 76–96; PULSE 68–92; RESP 16–18; TEMP 97.7–97.9; O2SAT 96–98
[2017-07-08 06:47] LABS: AUTOMATED NEUTROPHIL # 4.7 TH/MM3 (1.8-7.7); BASOPHIL # 0.1 TH/MM3 (0-0.2); BASOPHIL % 1.1 % (0.0-2.0); EOSINOPHIL # 0.6 TH/MM3 (0-0.4); EOSINOPHIL % 8.3 % (0.0-4.0); HEMATOCRIT 39.6 % (39.0-51.0); HEMOGLOBIN 13.4 GM/DL (13.0-17.0); LYMPH % 15.6 % (9.0-44.0); LYMPHOCYTE # 1.1 TH/MM3 (1.0-4.8); MEAN CELL VOLUME 95.9 FL (80.0-100.0); MEAN CORPUSCULAR HEMOGLOBIN 32.4 PG (27.0-34.0); MEAN CORPUSCULAR HGB CONC 33.7 % (32.0-36.0); MEAN PLATELET VOLUME 9.5 FL (7.0-11.0); MONOCYTE # 0.7 TH/MM3 (0-0.9); PLATELET COUNT 164 TH/MM3 (150-450); RED BLOOD COUNT 4.13 MIL/MM3 (4.50-5.90); RED CELL DISTRIBUTION WIDTH 15.3 % (11.6-17.2); WHITE BLOOD COUNT 7.3 TH/MM3 (4.0-11.0)
[2017-07-08 07:18] LABS: BICARBONATE 24.7 MEQ/L (21.0-32.0); CALCIUM 8.7 MG/DL (8.5-10.1)
[2017-07-08] MEDS: CARVEDILOL 6.25 MG TAB PO SCH (08:36)
[2017-07-08] MEDS ORDERED: POTASSIUM CHLORIDE 20 MEQ CONTROLLED RELEASE TAB PO SCH (09:00)
[2017-07-08] MEDS ORDERED: CLOPIDOGREL 75 MG TAB PO SCH (09:00)
[2017-07-08] MEDS ORDERED: FUROSEMIDE 40 MG TAB PO SCH (09:00)
[2017-07-08] MEDS ORDERED: ASPIRIN EC 81 MG TABEC PO SCH (09:00)
--- NOTE | 2017-07-08 12:19 | PD.CARD.PN ---
Subjective Subjective Remarks No events overnight No complaints Objective Medications Current Medications Medications (Trade) Dose Ordered Sig/Kristina Route Start Time Stop Time Status Last Admin Sodium Chloride 1,000 ml @ 30 mls/hr Q24H IV 07/07/17 07:30 07/07/17 15:06 (Ecotrin Ec) 81 mg DAILY PO 07/08/17 09:00 07/08/17 08:36 (Lipitor) 80 mg HS PO 07/07/17 21:00 07/07/17 21:58 (Coreg) 6.25 mg BID PO 07/07/17 21:00 07/08/17 08:36 (Plavix) 75 mg DAILY PO 07/08/17 09:00 07/08/17 08:37 (Lasix) 40 mg DAILY PO 07/08/17 09:00 07/08/17 08:37 (KCl) 20 meq DAILY PO 07/08/17 09:00 07/08/17 08:37 (Tylenol) 325 mg Q4H PRN PO 07/07/17 11:00 (Percocet 5-325 Mg) 1 tab Q4H PRN PO 07/07/17 11:00 (Percocet 10-325 Mg) 1 tab Q4H PRN PO 07/07/17 11:00 (Morphine Inj) 2 mg Q30M PRN IV PUSH 07/07/17 11:00 Vital Signs / I&O Vital Signs Date Time Temp Pulse Resp B/P (MAP) Pulse Ox O2 Delivery O2 Flow Rate FiO2 07/08/17 09:00 70 07/08/17 08:00 70 07/08/17 07:37 97.9 80 16 127/79 (95) 98 07/08/17 07:00 74 07/08/17 06:00 68 07/08/17 05:00 74 07/08/17 04:01 97.7 74 18 109/78 (88) 96 07/08/17 04:00 69 07/08/17 03:00 70 07/08/17 02:00 70 07/08/17 01:00 92 07/08/17 00:00 69 07/08/17 00:00 97.8 72 18 105/76 (86) 96 07/07/17 23:00 70 07/07/17 22:00 74 07/07/17 21:00 76 07/07/17 20:00 74 07/07/17 20:00 98.1 78 20 106/76 (86) 95 07/07/17 19:00 76 07/07/17 18:00 92 07/07/17 17:00 68 07/07/17 16:00 64 07/07/17 15:00 71 07/07/17 15:00 98.2 70 16 104/72 (83) 97 07/07/17 14:00 70 I/O 07/07/17 07/07/17 07/07/17 07/08/17 07/08/17 07/08/17 07:00 15:00 23:00 07:00 15:00 23:00 Intake Total 240 ml 240 ml Output Total 300 ml Balance -60 ml 240 ml Intake Oral 240 ml 240 ml Output Urine Total 300 ml # Voids 1 Physical Exam GENERAL: NAD, AAOx3 SKIN: Warm and dry. HEAD: Atraumatic. Normocephalic. EYES: Pupils equal and round. No scleral icterus. No injection or drainage. ENT: No nasal bleeding or discharge. Mucous membranes pink and moist. NECK: Trachea midline. No JVD. CARDIOVASCULAR: Regular rate and rhythm. RESPIRATORY: No accessory muscle use. Clear to auscultation. Breath sounds equal bilaterally. GASTROINTESTINAL: Abdomen soft, non-tender, nondistended. Hepatic and splenic margins not palpable. MUSCULOSKELETAL: Extremities without clubbing, cyanosis, or edema. No obvious deformities. Right radial/femoral with no hematoma NEUROLOGICAL: Awake and alert. No obvious cranial nerve deficits. Motor grossly within normal limits. Five out of 5 muscle strength in the arms and legs. Normal speech. PSYCHIATRIC: Appropriate mood and affect; insight and judgment normal. Laboratory Laboratory Tests Test 07/08/17 06:17 White Blood Count 7.3 TH/MM3 Red Blood Count 4.13 MIL/MM3 Hemoglobin 13.4 GM/DL Hematocrit 39.6 % Mean Corpuscular Volume 95.9 FL Mean Corpuscular Hemoglobin 32.4 PG Mean Corpuscular Hemoglobin Concent 33.7 % Red Cell Distribution Width 15.3 % Platelet Count 164 TH/MM3 Mean Platelet Volume 9.5 FL Neutrophils (%) (Auto) 65.0 % Lymphocytes (%) (Auto) 15.6 % Monocytes (%) (Auto) 10.0 % Eosinophils (%) (Auto) 8.3 % Basophils (%) (Auto) 1.1 % Neutrophils # (Auto) 4.7 TH/MM3 Lymphocytes # (Auto) 1.1 TH/MM3 Monocytes # (Auto) 0.7 TH/MM3 Eosinophils # (Auto) 0.6 TH/MM3 Basophils # (Auto) 0.1 TH/MM3 CBC Comment DIFF FINAL Differential Comment Blood Urea Nitrogen 17 MG/DL Creatinine 1.00 MG/DL Random Glucose 97 MG/DL Calcium Level 8.7 MG/DL Sodium Level 141 MEQ/L Potassium Level 3.9 MEQ/L Chloride Level 107 MEQ/L Carbon Dioxide Level 24.7 MEQ/L Anion Gap 9 MEQ/L Estimat Glomerular Filtration Rate 74 ML/MIN Assessment and Plan Problem List: (1) LV dysfunction ICD Codes: I51.9 - Heart disease, unspecified Status: Acute (2) S/P drug eluting coronary stent placement ICD Codes: Z95.5 - Presence of coronary angioplasty implant and graft Status: Acute (3) Hyperlipidemia ICD Codes: E78.5 - Hyperlipidemia, unspecified Status: Acute Assessment and Plan 1) CHF with infarction on nuclear, MRI showing viability s/p DESx2 LAD ASA/Plavix/BB/Statin Entresto which contains ARB 2) Cardiovascularly stable for discharge Follow up with Bryn Figueroa DO July 08, 2017 12:19
--- NOTE | 2017-07-08 15:01 | EKG ---
Date Performed: 07/07/2017 Time Performed: 15:17:40 PTAGE: 67 years EKG: Sinus rhythm with PVC(s) Left bundle branch block Abnormal ECG No significant change from prior electrocardiogram . DOCTOR: Monster Ojeda Interpretating Date/Time 07/08/2017 15:00:08
== END 2017-07-08 10:00 | disposition home or self-care (01) ==
LOC: HDOC 06:52 → HDIC 06:53 → HCIS 16:57 → HDOC 07-08 10:00
PROVIDERS: ATTEND Nuclear Medicine Nuclear Cardiology
DX: I25.10 Atherosclerotic heart disease of native coronary artery without angina pectoris (principal); I50.9 Heart failure, unspecified
CPT/HCPCS: 80048; 85002; 85025; 85610; 85730; 92921; 92928; 93005; 93454; 93571; 93572; 99152; 99153; C1725; C1760; C1769; C1874; C1887; C1893; G0269; J1644; J2250; J3010; J7030; Q9967